=== PATIENT | male | born 1995 | race Caucasian/White ===

== ENCOUNTER 2020-07-21 02:36 | Emergency (ER) | payer SELFPAY ==
[~2020-07-21] VITALS: Ht 172.7 cm; Wt 85.0 kg
[2020-07-21] MEDS ORDERED: TETANUS, DIPHTHERIA, PERTUSSIS VAC/PF 0.5ML (>7YR OLD) IM ONE (04:15)
[2020-07-21 04:16] VITALS: BP 124/80
== END 2020-07-21 04:17 | disposition home or self-care (01) ==
LOC: ER 02:36
DX: S16.1XXA Strain of muscle, fascia and tendon at neck level, initial encounter (principal); T40.7X1A Poisoning by cannabis (derivatives), accidental (unintentional), initial encounter; T40.991A Poisoning by other psychodysleptics [hallucinogens], accidental (unintentional), initial encounter; T14.8XXA Other injury of unspecified body region, initial encounter; R00.0 Tachycardia, unspecified; F41.9 Anxiety disorder, unspecified; Y35.893A Legal intervention involving other specified means, suspect injured, initial encounter; Y93.89 Activity, other specified; Y92.59 Other trade areas as the place of occurrence of the external cause
CPT/HCPCS: 90471; 90715; 93005; 99283